=== PATIENT | male | born 1950 | race Caucasian/White ===

== ENCOUNTER → 2023-10-03 09:08 | Outpatient (CLI) | payer MEDICARE, OTHER, SELFPAY ==
--- NOTE | 2023-10-03 09:41 | DI.MRI.S_ITS ---
PROCEDURE: MR LUMBAR SPINE WO CON INDICATIONS: LEFT HIP PAIN TECHNIQUE: Noncontrast sagittal T1 spin echo and T2 fast echo, sagittal STIR, and T2 fast spin echo through the lumbar spine. In cases with scoliosis, additional coronal T2 fast spin echo may be performed. COMPARISON: [facility], , L-SPINE WITHOUT CONTRAST, 06/21/2016, 14:22. FINDINGS: Image quality: Excellent. Alignment and Curvature: There is normal bony alignment. Bone Marrow: Marrow is of normal overall signal. No acute vertebral body compression fractures. Spinal Cord: Conus medullaris terminates at the L1 level. Visualized cord demonstrates normal signal and size. Paraspinous Soft Tissues: No paravertebral masses. T12-L1: Mild disc desiccation and height loss. No canal stenosis. No foraminal stenosis. L1-L2: Mild disc desiccation and height loss. Mild facet ligamentum flavum hypertrophy. No canal stenosis. Mild bilateral foraminal stenosis. Findings are unchanged from the study dated June 21, 2016. L2-L3: Moderate disc desiccation and height loss. Broad-based disc bulge. There is a large superior L3 endplate Schmorl's node which is increased from the 2016 study. Broad-based disc bulge. Mild facet ligamentum flavum hypertrophy. No canal stenosis. Mild bilateral foraminal stenosis. Findings are unchanged from the prior study. L3-L4: Mild disc desiccation and height loss. Broad-based disc bulge. Moderate facet and ligamentum flavum hypertrophy. Mild canal stenosis. Mild bilateral foraminal stenosis. The extent of foraminal narrowing is slightly increased when compared with the prior study. There is a focal posterior high-intensity zone present which is new when compared with the prior study. L4-L5: Severe disc desiccation and height loss. Broad-based disc bulge. Severe facet ligamentum flavum hypertrophy. Mild canal stenosis. Moderate bilateral foraminal stenosis. These findings are similar to the prior study. L5-S1: Severe disc desiccation and height loss. Broad-based disc bulge. Severe facet ligamentum flavum hypertrophy. No canal stenosis. Severe bilateral foraminal stenosis. There is slight flattening of the exiting right nerve root. Findings are similar to the prior study. IMPRESSION: 1. Findings are similar to the study dated June 21, 2016 including mild canal stenosis at L3-4, moderate bilateral foraminal stenosis at L4-5 and severe bilateral foraminal stenosis at L5-S1. 2. 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 Dictated by: Carie Giordano M.D. on 10/03/2023 at 11:05 Approved by: Carie Giordano M.D. on 10/03/2023 at 11:19
== END ==
PROVIDERS: Family Provider Family Medicine; PCP Family Medicine; Referring Provider Orthopaedic Surgery Adult Reconstructive Orthopaedic Surgery; Visit Provider Orthopaedic Surgery Adult Reconstructive Orthopaedic Surgery
DX: M25.552 Pain in left hip (principal); M48.061 Spinal stenosis, lumbar region without neurogenic claudication; M48.07 Spinal stenosis, lumbosacral region; M51.36 Other intervertebral disc degeneration, lumbar region
CPT/HCPCS: 72148

== ENCOUNTER → 2023-10-12 13:38 | Outpatient (CLI) | payer MEDICARE, OTHER, SELFPAY ==
--- NOTE | 2023-10-12 13:41 | DI.MRI.S_ITS ---
PROCEDURE: MR ANKLE LT WO CON INDICATIONS: Pain in left ankle and joints of left foot TECHNIQUE: Noncontrast sagittal T1 spin echo and T2 fast spin echo with fat saturation, axial proton density fast spin echo and T2 fast spin echo with fat saturation, coronal T1 spin echo and T2 fast spin echo with fat saturation through the ankle/hindfoot. COMPARISON: None. FINDINGS: Image quality: Excellent. Bones and joints: There is marrow edema in visualized portion of 3rd metatarsal base and proximal shaft incompletely evaluated on this study. No other area of abnormal marrow signal. [id number] midfoot and hindfoot joint osteoarthritic changes are seen. No hindfoot coalitions. No osteochondral injuries of the talar dome. Well-defined plantar calcaneal enthesophyte is seen. No pathologic joint effusions. Medial structures: The posterior tibialis, flexor digitorum longus, and flexor hallucis longus tendons are mildly thickened with small amount of fluid distending tendon sheath. The posterior tibial neurovascular bundle appears normal within the tarsal tunnel, without extrinsic mass effect. The deep layer (anterior and posterior tibiotalar ligaments) and superficial layer (tibionavicular, tibiospring, and tibiocalcaneal ligaments) of the deltoid ligament appear normal. The spring ligament components (superomedial calcaneonavicular, medioplantar oblique calcaneonavicular, and inferoplantar longitudinal ligaments) are intact. Lateral structures: The anterior talofibular ligament is thickened. The calcaneofibular, and posterior talofibular ligaments appear intact. More superiorly, the anterior and posterior tibiofibular ligaments appear intact, as is the intermalleolar ligament. The tibiofibular syndesmosis is normal in width at 2 mm or less. There is markedly thickened peroneus longus and brevis tendon at the level of lateral malleolus tip extending to their distal insertions of metatarsal bases with small to moderate amount of fluid distending tendon sheath. The sinus tarsi demonstrates normal fatty signal, without edema, fibrosis, or cyst formation. Visualized sinus tarsi components (cervical ligament, interosseous talocalcaneal ligament, roots of the inferior extensor retinaculum) appear normal. The calcaneonavicular and calcaneocuboid components of the bifurcate ligament appear intact. The dorsal calcaneocuboid ligament appears intact. Anterior structures: The tibialis anterior, extensor hallucis longus, and extensor digitorum longus tendons appear intact. The dorsal talonavicular ligament appears intact. Posterior and plantar structures: Achilles tendon is intact. Medial and lateral bands of the plantar fascia are of normal thickness. No abductor digiti quinti muscle atrophy to suggest Francisco neuropathy. IMPRESSION: 1. Marrow edema involving 3rd metatarsal base/proximal shaft please correlate with MRI of left foot findings. No other area of abnormal marrow signal. [id number] midfoot and hindfoot joint osteoarthritis. No osteochondral injuries of talar dome. 2. Low-grade tenosynovitis involving flexor tendons. 3. Moderate grade tenosynovitis involving peroneus tendons extending from the level of lateral malleolus tip to their distal insertions. 4. Low-grade sprain involving anterior and posterior talofibular ligaments and calcaneofibular ligament. Dictated by: Jose Juan Doll M.D. on 10/12/2023 at 21:13 Approved by: Jose Juan Doll M.D. on 10/12/2023 at 21:29
--- NOTE | 2023-10-12 13:42 | DI.MRI.S_ITS ---
PROCEDURE: MRFOOT LT WO CON INDICATIONS: Pain in left ankle and joints of left foot TECHNIQUE: Noncontrast sagittal T1 spin echo and T2 fast spin echo with fat saturation, long-axis T1 spin echo and T2 fast spin echo with fat saturation, short-axis T1 spin echo and T2 fast spin echo with fat saturation through the forefoot. COMPARISON: None. FINDINGS: Image quality: Excellent. Bones and joints: There is marrow edema involving base and proximal shaft of 3rd metatarsal bone with subtle internal linear hypointense signal concerning for nondisplaced stress fracture in this area. Osteoarthritic changes are seen throughout midfoot and forefoot joints with joint space narrowing and subchondral sclerosis. No other fracture or dislocation. No suspicious intraosseous lesion. Soft tissues: There is mild soft tissue swelling surrounding proximal shaft of 3rd metatarsal bone. The visualized plantar foot muscles demonstrate normal signal and bulk. Visualized flexor and extensor tendons appear intact, without tenosynovitis. The distal insertions of the peroneus brevis and longus tendons appear intact. The principal Lisfranc ligament appears intact. No soft tissue ganglion cysts or bursal fluid collections. Sagittal images demonstrate no evidence for plantar plate tears. IMPRESSION: 1. Suggestion of subacute stress fracture involving proximal shaft/base of 3rd metatarsal bone with mild surrounding soft tissue edema. 2. Midfoot and forefoot joint osteoarthritis. No other fracture or dislocation. No suspicious intraosseous lesion. 3. Mild soft tissue swelling surrounding proximal shaft of 3rd metatarsal bone. Extensor and flexor tendons are intact. No soft tissue mass or drainable fluid collection. Lisfranc ligament is intact. Dictated by: Jose Juan Doll M.D. on 10/12/2023 at 16:09 Approved by: Jose Juan Doll M.D. on 10/12/2023 at 21:13
== END ==
PROVIDERS: Family Provider Family Medicine; PCP Family Medicine; Referring Provider Podiatrist; Visit Provider Podiatrist
DX: S93.412A Sprain of calcaneofibular ligament of left ankle, initial encounter (principal); S93.492A Sprain of other ligament of left ankle, initial encounter; M19.072 Primary osteoarthritis, left ankle and foot; M65.872 Other synovitis and tenosynovitis, left ankle and foot; R60.0 Localized edema; M79.89 Other specified soft tissue disorders; M79.672 Pain in left foot; M25.572 Pain in left ankle and joints of left foot
CPT/HCPCS: 73718; 73721

== ENCOUNTER → 2024-02-15 18:43 | Outpatient (CLI) | payer MEDICARE, OTHER, SELFPAY ==
--- NOTE | 2024-02-15 | DI.MRI.S_ITS ---
PROCEDURE: MRFOOT LT WO CON INDICATIONS: Stress fracture, left foot, TECHNIQUE: Multiphasic, multisequence MRI of the forefoot was performed, without intravenous contrast administration. COMPARISON: [facility], , MR FOOT LT WO CON, 10/12/2023, 13:50. FINDINGS: Image quality: Excellent. Bones and joints: Focal osseous edema is again seen at the proximal 3rd metatarsal shaft that appears similar in extent when compared to the MRI from 10/12/2023. There is new osseous edema in the 4th metatarsal base and the metatarsal shaft. Degenerative changes are again seen throughout the interphalangeal joints of the toes. The 5th toe is extended superiorly and overlaps with the 4th toe. Soft tissues: Mild soft tissue edema adjacent to the 3rd and 4th metatarsal shafts. The visualized plantar foot muscles demonstrate normal signal and bulk. Visualized flexor and extensor tendons appear intact, without tenosynovitis. The distal insertions of the peroneus brevis and longus tendons appear intact. The principal Lisfranc ligament appears intact. No soft tissue ganglion cysts or bursal fluid collections. Sagittal images demonstrate no evidence for plantar plate tears. IMPRESSION: 1. New osseous edema is seen at the 4th metatarsal base and metatarsal shaft that is suspicious for acute stress reaction. Similar osseous edema is seen in the proximal 3rd metatarsal shaft related to the previously seen stress fracture. 2. Stable mild forefoot osteoarthrosis. Approved by: Tramaine Pedersen M.D. on 02/16/2024 at 9:38
== END ==
LOC: MRI 18:45
PROVIDERS: Family Provider Family Medicine; PCP Family Medicine; Referring Provider Podiatrist; Visit Provider Podiatrist
DX: M84.375D Stress fracture, left foot, subsequent encounter for fracture with routine healing (principal); M19.072 Primary osteoarthritis, left ankle and foot; X58.XXXD Exposure to other specified factors, subsequent encounter
CPT/HCPCS: 73718

== ENCOUNTER → 2024-03-13 13:59 | Outpatient (CLI) | payer MEDICARE, OTHER, SELFPAY ==
--- NOTE | 2024-03-13 14:00 | DI.RAD.S_ITS ---
PROCEDURE: XR DEXA AXIAL SKELETON INDICATIONS: Non-healing stress fracture COMPARISON: None. FINDINGS: Lumbar Spine: Bone mineral density 1.245 g/cm2, T score 1.8, normal. Left Hip: Bone mineral density 1.032 g/cm2, T score 0.7, normal. Left Femoral Neck: Bone mineral density 0.917 g/cm2, T score 0.6, normal. Right Hip: Bone mineral density 1.075 g/cm2, T score 1.1, normal. Right Femoral Neck: Bone mineral density 0.932 g/cm2, T score 0.8, normal. Fracture Risk Calculation (when applicable): Not reported due to normal bone mineral density. (T score greater or equal to -1.0 to: NORMAL) (T score from -1.1 to -2.4: OSTEOPENIA) (T score less than or equal to -2.5: OSTEOPOROSIS) IMPRESSION: Normal bone mineral density. Follow-up guidelines as follows: Osteoporosis: Consider a repeat DEXA and Vertebral Fracture Assessment (VFA) exam in 2 years or sooner if medically necessary, to reassess this patient's status. Osteopenia: Consider a repeat DEXA in 2-3 years to reassess this patient's status, or if there is a new clinical indication. Normal: Consider a repeat DEXA in 5 years or sooner, or if there is a new clinical indication. Dictated by: Trey Babb M.D. on 03/13/2024 at 15:21 Approved by: Trey Babb M.D. on 03/13/2024 at 15:21
== END ==
LOC: RAD 14:00
PROVIDERS: Family Provider Family Medicine; PCP Family Medicine; Referring Provider Podiatrist; Visit Provider Podiatrist
DX: M81.0 Age-related osteoporosis without current pathological fracture (principal); M84.475A Pathological fracture, left foot, initial encounter for fracture
CPT/HCPCS: 77080

== ENCOUNTER → 2024-05-28 08:25 | Outpatient (CLI) | payer MEDICARE, OTHER, SELFPAY ==
--- NOTE | 2024-05-28 10:00 | DI.MRI.S_ITS ---
PROCEDURE: MR SHOULDER RT WO CON INDICATIONS: SHOULDER PAIN TECHNIQUE: Noncontrast oblique coronal T2 fast spin echo with fat saturation, oblique sagittal T1 spin echo and T2 fast spin echo with fat saturation, axial T1 spin echo and T2 fast spin echo with fat saturation through the shoulder. COMPARISON: None. FINDINGS: Image quality: Excellent. Rotator cuff: The anterior fiber of the supraspinatus tendon is mildly diminutive, but grossly intact. There is full-thickness tear at the critical zone of the junction of the supraspinatus and infraspinatus, measuring approximately 1.1 cm on sagittal dimension. There is mild tendon retraction to the level of the medial humeral head. The teres minor is unremarkable. Mild tendinosis of the subscapularis, without tear. Severe fatty atrophy of the superior aspect of the infraspinatus. No muscle edema. Bones and bursae: Mild degenerative changes of the acromioclavicular joint. Type 2 acromion. No os acromiale. Status post prior rotator cuff repair with suture anchor in the humeral head. Susceptibility artifact in the humeral head, limits evaluation. Mild subchondral marrow edema in the lesser tuberosity, favoring reactive. No acute fracture. Capsule and soft tissues: Diffuse labral degeneration. Mild tenosynovitis of the extra-articular biceps tendon, which is intact. The intra-articular biceps tendon is intact. Small glenohumeral effusion. Mild subcoracoid bursitis. Moderate subacromial/subdeltoid bursitis. No intra-articular body. IMPRESSION: 1. Postprocedure changes of prior rotator cuff repair. Full-thickness tear at the critical zone of the junction of the supraspinatus and infraspinatus. Severe fatty atrophy of the superior aspect of the infraspinatus. 2. Mild degenerative changes of the acromioclavicular joint. 3. Mild tenosynovitis of the extra-articular biceps tendon. 4. Moderate subacromial/subdeltoid bursitis. Dictated by: Stephenie Louis M.D. on 05/28/2024 at 20:42 Approved by: Stephenie Louis M.D. on 05/28/2024 at 20:51
== END ==
PROVIDERS: Family Provider Family Medicine; PCP Family Medicine; Referring Provider Orthopaedic Surgery; Visit Provider Orthopaedic Surgery
DX: S46.811D Strain of other muscles, fascia and tendons at shoulder and upper arm level, right arm, subsequent encounter (principal); M75.121 Complete rotator cuff tear or rupture of right shoulder, not specified as traumatic; M65.821 Other synovitis and tenosynovitis, right upper arm; M75.51 Bursitis of right shoulder
CPT/HCPCS: 73221

== ENCOUNTER → 2025-07-18 15:47 | Outpatient (CLI) | payer MEDICARE, OTHER, SELFPAY ==
--- NOTE | 2025-07-18 15:48 | DI.US.S_ITS ---
PROCEDURE: US CAROTID DOPPLER BI INDICATIONS: Right carotid bruit TECHNIQUE: Color and pulse Doppler interrogation was performed of both carotid systems, with image documentation and velocity measurements. COMPARISON: None. FINDINGS: Stenosis calculations are based on SRU (Society [employer] in [employer]) criteria. The flow velocities and the arterial waveforms are normal within both carotid arterial systems. Atherosclerotic plaque is seen on both sides. The estimated degree of internal carotid artery stenosis is less than 50%. Antegrade flow is confirmed within both vertebral arteries. Tortuosity is noted of the proximal right external carotid artery. IMPRESSION: No hemodynamically significant stenosis is seen. Atherosclerotic plaque is noted bilaterally. Dictated by: Ezra Raymundo M.D. on 07/18/2025 at 16:22 Approved by: Ezra Raymundo M.D. on 07/18/2025 at 16:22
== END ==
LOC: US 15:48
PROVIDERS: Family Provider Family Medicine; PCP Family Medicine; Referring Provider Internal Medicine Cardiovascular Disease; Visit Provider Internal Medicine Cardiovascular Disease
DX: I65.23 Occlusion and stenosis of bilateral carotid arteries (principal); R09.89 Other specified symptoms and signs involving the circulatory and respiratory systems
CPT/HCPCS: 93880